=== PATIENT | female | born 1960 | race Asian ===

== ENCOUNTER 2018-03-24 08:55 | Outpatient (CLI) | payer OTHER ==
--- NOTE | 2018-03-24 12:53 | MMO ---
BILATERAL SCREENING MAMMOGRAM: Comparison: 03-21-09, 10-09-10 History: 57-year-old female for screening mammography. Technique: CC and MLO views of both breasts are submitted for interpretation. This study is interpret ed with the assistance of computer aided detection. FINDINGS: Breasts are comprised of scattered fibroglandular tissue. Bilaterally, no dominant mass, architectura l distortion, or suspicious calcifications. Benign appearing calcifications in the right breast. IMPRESSION: BIRADS category 2 - benign findings. RECOMMENDATION: Annual mammogram. POS: MEL
== END 2018-03-24 08:56 | disposition home or self-care (01) ==
LOC: SCSMAMMO 08:55
PROVIDERS: ATTEND Family Medicine
DX: Z12.31 Encounter for screening mammogram for malignant neoplasm of breast (principal)
CPT/HCPCS: 77067

== ENCOUNTER 2019-06-20 08:17 | Outpatient (CLI) | payer OTHER ==
--- NOTE | 2019-06-20 08:50 | ULT ---
US Hepatic Doppler: 06/20/2019 12:00 AM CLINICAL HISTORY: Chronic hepatitis. STUDY: Right upper quadrant ultrasound of liver. TECHNIQUE: Multiplanar grayscale and color Doppler images were obtained in a ultrasound of the right upper quadrant of the abdomen. Spectral analysis of the Doppler waveforms of the hepatic and splenic vessels were performed. COMPARISON: None. FINDINGS: Liver: Size: Normal. Echogenicity: Normal. Contour: Smooth. Mass: None. Bile ducts: No intrahepatic or extrahepatic biliary dilatation. Common bile duct measures 4 mm. Gallbladder: Normal. Pancreas: Head and body appear normal; tail obscured by bowel gas. Hepatic veins: Normal waveforms. Normal directional flow. Portable veins: Normal waveforms. Normal directional flow. Hepatic arteries: Normal waveforms. Normal directional flow. Splenic vein: Normal waveforms. Normal directional flow. Splenic artery: Normal waveforms. Normal directional flow. The spleen is normal in echogenicity without focal lesions and measures 9.3cm in length. IMPRESSION: Unremarkable exam.
== END 2019-06-20 08:18 | disposition home or self-care (01) ==
LOC: BICULT 08:17
PROVIDERS: ATTEND Family Medicine
DX: K76.6 Portal hypertension (principal); D64.9 Anemia, unspecified
CPT/HCPCS: 76705